=== PATIENT | female | born 1935 | race Caucasian/White ===

== ENCOUNTER 2016-06-10 13:36 | Emergency (ER) | payer MEDICARE, OTHER ==
[~2016-06-10 13:36] MED LIST: ACET500CAP PO; APRES25 PO; ARTIFICIAL TEARS OP; ASAB PO; ASPERCREME TOP; B121000P IM; CO Q-10100 MG PO; CO-Q-10 PO; COQ-1010 MG OR; COREG3 PO; COREG6 PO; CRESTOR PO; CRESTOR10 PO; CRESTOR5 MG PO; CYANO1000T PO; D.O.S.100 MG PO; HALF81 PO; HYDROCHLOROT25 MG PO; IMDUR30 PO; IMDUR60 PO; K-TABS10 MEQ PO; KDUR20 PO; KLOR-CON 1010 MEQ PO; KLOR-CON M1010 MEQ PO; KLOR-CON M2020 MEQ PO; LEXAPRO10 PO; LEXAPRO20 PO; LEXAPRO5 MG PO; LIPITOR20 PO; NEXIUM40 PO; NITROSTAT0.4 MG SL; NORV10 PO; NORV5 PO; NTG150 SL; NYSTOP100000 MG TOP; PLAVIX PO; POTASSIUM CHLORIDE PO; POTASSIUM PO; PRIN20 PO; REG PO; TRILEP150 PO; TYLENOL 8 HR650 MG PO; VITAMIN D1000 UNI1 PO; WELCHOL 625 MG625 MG OR; WELCHOL625 MG OR; ZESTRIL10 MG PO; ZESTRIL5 MG PO; [UNRECOGNIZED DRUG - OTHER]; [UNRECOGNIZED DRUG - OTHER] OR
[2016-06-10 14:09] LABS: BASOPHILS 0.9 %; BASOPHILS ABSOLUTE 0.04 10/3/uL (0.0-0.16); EOSINOPHILS 1.6 %; EOSINOPHILS ABSOLUTE 0.07 10/3/uL (0.0-0.53); HEMATOCRIT 35.8 % (36.0-48.0); HEMOGLOBIN 11.3 g/dL (12.0-16.0); IMMATURE GRANULOCYTES 0.2 %; IMMATURE GRANULOCYTES ABSOLUTE 0.01 10/3/uL (0.0-0.11); LYMPHOCYTES 24.6 %; LYMPHOCYTES ABSOLUTE 1.05 10/3/uL (0.67-4.30); MEAN CORPUS HGB CONC 31.6 g/dL (32.0-36.0); MEAN CORPUSCULAR HEMOGLOB 31.6 pg (26.0-34.0); MEAN PLATELET VOLUME 10.1 fL (9.2-13.0); MONOCYTES 10.8 %; MONOCYTES ABSOLUTE 0.46 10/3/uL (0.21-1.20); NEUTROPHILS 61.9 %; NEUTROPHILS ABSOLUTE 2.64 10/3/uL (2.02-8.40); PLATELET COUNT 161 10/3/uL (150-400); RBC DISTRIBUTION WIDTH 12.5 % (12.0-16.0); RED CELL COUNT 3.58 10/6/uL (4.0-5.6); WHITE BLOOD CELLS 4.3 10/3/uL (4.5-10.5)
[2016-06-10 14:10] LABS: ER CBC TAT 0 Hrs 07 MinsNP; MANUAL DIFF NO %
[2016-06-10 14:17] LABS: PARTIAL THROMBO TIME 26.1 SEC (22.5-37.2); PROTIME (NOT ORD) 13.4 SEC (12.0-14.5)
[2016-06-10 14:24] LABS: CALCIUM, SERUM 8.3 MG/DL (8.5-10.4); CHEST PAIN PROFILE TAT 0 Hrs 22 Mins; CHLORIDE, SERUM 104 MMOL/L (96-112); CO2 (CARBON DIOXIDE) 29 MMOL/L (24-34); CREATININE 0.69 MG/DL (0.55-1.02); GFR AFRICAN AMERICAN 94 ML/MIN (>=60); GFR NON AFRICAN AMERICAN 81 ML/MIN (>=60); GLUCOSE, SERUM 102 MG/DL (60-99); POTASSIUM, SERUM 3.9 MMOL/L (3.5-5.3); SODIUM, SERUM 141 MMOL/L (135-148); TROPONIN I <0.02 NG/ML (<0.05)
[2016-06-10 14:25] LABS: BUN (BLOOD UREA NITROGEN) 15 MG/DL (6-23)
[2016-10-30] MEDS ORDERED: IMDUR30 PO (19:15)
[2016-10-30] MEDS ORDERED: ZESTRIL20 MG PO (19:15)
[2016-10-30] MEDS ORDERED: PROTONIX PO (19:16)
[2016-10-30] MEDS ORDERED: ZOCOR PO (19:16)
[2016-10-30] MEDS ORDERED: PLAVIX PO (19:16)
[2016-10-30] MEDS ORDERED: TRILEP150 PO (19:16)
[2016-10-30] MEDS ORDERED: CYANO1000T PO (19:17)
[2016-10-30] MEDS ORDERED: TEARS PLUS OPH (19:17)
[2016-10-30] MEDS ORDERED: HALF81 PO (19:17)
[2016-10-30] MEDS ORDERED: BACDS PO (19:17)
[2016-10-30] MEDS ORDERED: IBU400 PO (19:18)
[2016-10-30] MEDS ORDERED: ZOFRAN ODT4 MG PO (19:18)
[2016-10-30] MEDS ORDERED: LEXAPRO10 PO (19:18)
[2016-10-30] MEDS ORDERED: COREG3 PO (19:18)
[2016-10-31] MEDS ORDERED: CRESTOR10 PO (09:42)
== END 2016-06-10 16:02 | disposition home or self-care (01) ==
LOC: ER 13:36
PROVIDERS: Emergency Medicine
DX: R07.9 Chest pain, unspecified (principal); K59.00 Constipation, unspecified; R11.0 Nausea; I25.2 Old myocardial infarction; I10 Essential (primary) hypertension; Z95.5 Presence of coronary angioplasty implant and graft; K21.9 Gastro-esophageal reflux disease without esophagitis; F32.9 Major depressive disorder, single episode, unspecified; Z90.710 Acquired absence of both cervix and uterus; Z88.8 Allergy status to other drugs, medicaments and biological substances; Z88.5 Allergy status to narcotic agent; Z79.82 Long term (current) use of aspirin; Z79.899 Other long term (current) drug therapy
CPT/HCPCS: 71020; 80048; 83735; 84484; 85025; 85610; 85730; 96374; 99285; J2405

== ENCOUNTER 2016-07-27 20:06 | Emergency (ER) | payer MEDICARE, OTHER ==
[2016-07-27 21:26] LABS: ASCORBIC ACID (UR NOT ORDER) NEG (NEG); BILIRUBIN, URINE NEGATIVE (NEG); ER URINALYSIS TAT 0 Hrs 22 Mins; KETONE, URINE NEGATIVE (NEG); LEUKOCYTE ESTERASE(NOT OR NEG (NEG); NITRITE (URINE) NEG (NEG); WBC (NOT ORDERED) (RFLEX) 2 (0-5)
[2016-07-27 21:56] LABS: BASOPHILS 0.3 %; BASOPHILS ABSOLUTE 0.02 10/3/uL (0.0-0.16); EOSINOPHILS 1.5 %; EOSINOPHILS ABSOLUTE 0.11 10/3/uL (0.0-0.53); ER CBC TAT 0 Hrs 07 Mins; HEMATOCRIT 33.6 % (36.0-48.0); HEMOGLOBIN 10.8 g/dL (12.0-16.0); IMMATURE GRANULOCYTES 0.3 %; IMMATURE GRANULOCYTES ABSOLUTE 0.02 10/3/uL (0.0-0.11); LYMPHOCYTES 16.8 %; MANUAL DIFF NO %; MEAN CORPUS HGB CONC 32.1 g/dL (32.0-36.0); MEAN CORPUSCULAR HEMOGLOB 31.8 pg (26.0-34.0); MEAN CORPUSCULAR VOLUME 98.8 fL (80-100); MEAN PLATELET VOLUME 10.3 fL (9.2-13.0); MONOCYTES 11.2 %; NEUTROPHILS 69.9 %; NEUTROPHILS ABSOLUTE 5.01 10/3/uL (2.02-8.40); PLATELET COUNT 159 10/3/uL (150-400); RBC DISTRIBUTION WIDTH 12.2 % (12.0-16.0); WHITE BLOOD CELLS 7.2 10/3/uL (4.5-10.5)
[2016-07-27 22:05] LABS: PARTIAL THROMBO TIME 24.1 SEC (22.5-37.2); PROTIME (NOT ORD) 13.2 SEC (12.0-14.5)
[2016-07-27 22:16] LABS: ALBUMIN 3.2 G/DL (3.5-5.0); ALKALINE PHOSPHATASE 113 U/L (45-117); SGOT(AST) 10 U/L (5-40); SGPT(ALT) 15 U/L (5-65); TOTAL BILIRUBIN 0.6 MG/DL (0-1.2); TOTAL PROTEIN 6.1 G/DL (6.0-8.5)
[2016-07-27 22:17] LABS: BUN (BLOOD UREA NITROGEN) 20 MG/DL (6-23); CALCIUM, SERUM 7.9 MG/DL (8.5-10.4); CHEST PAIN PROFILE TAT 0 Hrs 28 Mins; CHLORIDE, SERUM 105 MMOL/L (96-112); CO2 (CARBON DIOXIDE) 29 MMOL/L (24-34); CREATININE 0.78 MG/DL (0.55-1.02); DIRECT BILIRUBIN < 0.1 MG/DL (0.0-0.4); GFR AFRICAN AMERICAN 82 ML/MIN (>=60); GFR NON AFRICAN AMERICAN 71 ML/MIN (>=60); INDIRECT BILIRUBIN(NOT ORDER) 0.5 MG/DL (0.1-0.9); POTASSIUM, SERUM 3.7 MMOL/L (3.5-5.3); SODIUM, SERUM 143 MMOL/L (135-148); TROPONIN I <0.02 NG/ML (<0.05)
[2016-07-27 22:18] LABS: GLUCOSE, SERUM 122 MG/DL (60-99)
[2016-10-30] MEDS ORDERED: IMDUR30 PO (19:15)
[2016-10-30] MEDS ORDERED: ZESTRIL20 MG PO (19:15)
[2016-10-30] MEDS ORDERED: PROTONIX PO (19:16)
[2016-10-30] MEDS ORDERED: ZOCOR PO (19:16)
[2016-10-30] MEDS ORDERED: PLAVIX PO (19:16)
[2016-10-30] MEDS ORDERED: TRILEP150 PO (19:16)
[2016-10-30] MEDS ORDERED: HALF81 PO (19:17)
[2016-10-30] MEDS ORDERED: BACDS PO (19:17)
[2016-10-30] MEDS ORDERED: CYANO1000T PO (19:17)
[2016-10-30] MEDS ORDERED: TEARS PLUS OPH (19:17)
[2016-10-30] MEDS ORDERED: COREG3 PO (19:18)
[2016-10-30] MEDS ORDERED: IBU400 PO (19:18)
[2016-10-30] MEDS ORDERED: ZOFRAN ODT4 MG PO (19:18)
[2016-10-30] MEDS ORDERED: LEXAPRO10 PO (19:18)
[2016-10-31] MEDS ORDERED: CRESTOR10 PO (09:42)
== END 2016-07-27 23:00 | disposition home or self-care (01) ==
LOC: ER 20:06
PROVIDERS: Emergency Medicine
DX: R19.7 Diarrhea, unspecified (principal); R53.1 Weakness; R55 Syncope and collapse; I10 Essential (primary) hypertension; I25.2 Old myocardial infarction; K21.9 Gastro-esophageal reflux disease without esophagitis; K58.9 Irritable bowel syndrome, unspecified; Z88.5 Allergy status to narcotic agent; Z88.8 Allergy status to other drugs, medicaments and biological substances; Z79.899 Other long term (current) drug therapy
CPT/HCPCS: 80048; 80076; 81001; 83605; 83690; 83735; 84484; 85025; 85610; 85730; 93005; 99285